=== PATIENT | male | born 1950 | race American Indian/Alaskan Native ===

== ENCOUNTER 2017-08-19 10:12 | Emergency (ER) | payer BC, OTHER ==
[2017-08-19] MEDS ORDERED: Aspirin 81 MG Tab.Chew PO ONE (10:23)
--- NOTE | 2017-08-19 10:25 | EDM.PDOC ---
ED HPI GENERAL MEDICAL PROBLEM - General Chief Complaint: Chest Pain Stated Complaint: PAIN ON LEFT SIDE,SOB Time Seen by Provider: 08/19/17 10:24 Source of Information: Reports: Patient - History of Present Illness INITIAL COMMENTS - FREE TEXT/NARRATIVE: HISTORY AND PHYSICAL: History of present illness: [Patient presents with a complaint of chest pain However just prior to arrival he was ice fishing and slipped on the ice, he fell on his left arm which compressed against his ribs he actually has lower rib pain on the left side, there is no bruising on his arm arm is nontender with full range of motion He denies head injury or loss of consciousness No fever nausea vomiting diarrhea constipation chest pain shortness breath headache dizziness or palpitation no bowel or urine symptoms ] Review of systems: As per history of present illness and below otherwise all systems reviewed and negative. Past medical history: As per history of present illness and as reviewed below otherwise noncontributory. Surgical history: As per history of present illness and as reviewed below otherwise noncontributory. Social history: No reported history of drug or alcohol abuse. Family history: As per history of present illness and as reviewed below otherwise noncontributory. Physical exam: HEENT: Atraumatic, normocephalic, pupils reactive, negative for conjunctival pallor or scleral icterus, mucous membranes moist, throat clear, neck supple, nontender, trachea midline. Lungs: Clear to auscultation, breath sounds equal bilaterally, chest tender along the left lower rib margins. Heart: S1S2, regular, negative for clicks, rubs, or JVD. Abdomen: Soft, nondistended, nontender. Negative for masses or hepatosplenomegaly. Negative for costovertebral tenderness. Pelvis: Stable nontender. Genitourinary: Deferred. Rectal: Deferred. Extremities: Atraumatic, negative for cords or calf pain. Neurovascular unremarkable. Neuro: Awake, alert, oriented. Cranial nerves II through XII unremarkable. Cerebellum unremarkable. Motor and sensory unremarkable throughout. Exam nonfocal. Diagnostics: [CBC CMP UA cardiac enzymes--canceled EKG--canceled Chest 1 view with left ribs ] Therapeutics: [Normal saline 1 25 mL per hour--canceled Aspirin 324 mg chewable--canceled ] [place] 5 per 325 one by mouth now one by mouth every 6 when necessary #30 no refill Impression: [Chest wall contusion Clinically correlates with at least a cracked rib Definitive disposition and diagnosis as appropriate pending reevaluation and review of above. left sided rib Pain Score (Numeric/FACES): 8 - Related Data Allergies Allergy/AdvReac Type Severity Reaction Status Date / Time penicillin Allergy Fever Verified 08/19/17 10:16 Home Meds: Home Meds Acetaminophen [Tylenol Arthritis Pain] 650 mg PO Q4HR 07/14/15 [History] Multivit-Min/FA/Lycopene/Lut [Centrum Silver Tablet] 1 tab PO DAILY 09/29/15 [ History] Omeprazole [Prilosec] 40 mg PO DAILY 09/29/15 [History] Past Medical History HEENT History: Reports: Impaired Vision, Other (See Below) Other HEENT History: wears glasses, hx of fx nose Cardiovascular History: Reports: None Respiratory History: Reports: None Other Respiratory History: pnuemonia 2015 Gastrointestinal History: Reports: GERD, Other (See Below) Other Gastrointestinal History: current rectal bleeding Genitourinary History: Reports: Other (See Below) Other Genitourinary History: kidney infection 3 months ago Musculoskeletal History: Reports: Arthritis, Fracture Other Musculoskeletal History: hx of arthritis to hands, fx right pinky finger, left shoulder surgery, ORIF left elbow Neurological History: Reports: None Psychiatric History: Reports: None Endocrine/Metabolic History: Reports: None Hematologic History: Reports: None Immunologic History: Reports: None Oncologic (Cancer) History: Reports: None Dermatologic History: Reports: None - Infectious Disease History Infectious Disease History: Reports: Measles - Past Surgical History Head Surgeries/Procedures: Reports: None GI Surgical History: Reports: Other (See Below) Musculoskeletal Surgical History: Reports: ORIF, Shoulder Surgery Social & Family History - Family History Family Medical History: Noncontributory Oncologic: Reports: Lung - Tobacco Use Smoking Status *Q: Never Smoker Used Tobacco, but Quit: Yes Second Hand Smoke Exposure: Yes - Caffeine Use Caffeine Use: Reports: None - Recreational Drug Use Recreational Drug Use: No Drug Use in Last 12 Months: No ED ROS GENERAL - Review of Systems Review Of Systems: ROS reveals no pertinent complaints other than HPI. ED EXAM, GENERAL - Physical Exam Exam: See Below Course - Vital Signs Last Recorded V/S: Last Vital Signs Temp 97.5 F 08/19/17 10:14 Pulse 73 08/19/17 10:14 Resp 20 08/19/17 10:14 BP 117/53 L 08/19/17 10:14 Pulse Ox 95 08/19/17 10:14 - Orders/Labs/Meds Orders: Active Orders 24 hr Category Date Time Status EKG Documentation Completion [RC] STAT Care 08/19/17 10:25 Inactive Ribs 2V w Chest Lt [CR] Stat Exams 08/19/17 10:25 Taken Meds: Medications Discontinued Medications Generic Name Dose Route Start Last Admin Trade Name Vee PRN Reason Stop Dose Admin Aspirin 324 mg 08/19/17 10:23 08/19/17 10:49 Aspirin PO 08/19/17 10:24 Not Given ONETIME ONE Sodium Chloride 1,000 mls @ 125 mls/hr 08/19/17 10:30 Normal Saline IV STAT KAITLYNN Departure - Departure Time of Disposition: 11:32 Disposition: Home, Self-Care 01 Condition: Good Clinical Impression: Contusion - Discharge Information Referrals: PCP,Unknown [Primary Care Provider] - Forms: ED Department Discharge Additional Instructions: Medication as prescribed Return if symptoms persist or worsen or sudden shortness of breath should this develop Follow-up with primary care in 2 weeks The following information is given to patients seen in the emergency department who are being discharged to home. This information is to outline your options for follow-up care. We provide all patients seen in our emergency department with a follow-up referral. The need for follow-up, as well as the timing and circumstances, are variable depending upon the specifics of your emergency department visit. If you don't have a primary care physician on staff, we will provide you with a referral. We always advise you to contact your personal physician following an emergency department visit to inform them of the circumstance of the visit and for follow-up with them and/or the need for any referrals to a consulting specialist. The emergency department will also refer you to a specialist when appropriate. This referral assures that you have the opportunity for follow-up care with a specialist. All of these measure are taken in an effort to provide you with optimal care, which includes your follow-up. Under all circumstances we always encourage you to contact your private physician who remains a resource for coordinating your care. When calling for follow-up care, please make the office aware that this follow-up is from your recent emergency room visit. If for any reason you are refused follow-up, please contact the [facility] emergency department at and asked to speak to the emergency department charge nurse. - My Orders Last 24 Hours: My Active Orders 08/19/17 10:25 EKG Documentation Completion [RC] STAT Ribs 2V w Chest Lt [CR] Stat - Assessment/Plan Last 24 Hours: My Active Orders 08/19/17 10:25 EKG Documentation Completion [RC] STAT Ribs 2V w Chest Lt [CR] Stat
[2017-08-19] MEDS ORDERED: Sodium Chloride 0.9% 1,000 ML IV SCH (10:30)
[2017-08-19] MEDS ORDERED: Acetaminophen/HYDROcodone 325-5 MG Tab PO ONE (11:33)
[2017-08-19 11:49] VITALS: BP 114/78
--- NOTE | 2017-08-21 17:17 | CR ---
EXAM DATE: 08/19/17 PATIENT'S AGE: 67 Patient: CHARLES STANLEY Facility: [place], [place] Site . Site : 1950 Study: XRay Chest ribs w/ribs [id number]/20/2018 11:14:08 AM Ordering Physician: Zenon Vázquez Final Report: INDICATION: Fall. Rib pain. Technique chest and rib detail. Five images of the chest in the left ribs. FINDINGS: Heart size is normal. No pleural effusions or pneumothorax. Mild scarring at the lung bases. No definite displaced fractures are visualized on the rib detail views. IMPRESSION: Basilar scarring. No pneumothorax or obvious displaced rib fracture. Dictated by Ryley Matson MD @ Aug 19 2017 11:21AM (Electronic Signature) Report Signed by Proxy. ABDOULAYE
== END 2017-08-19 11:47 | disposition home or self-care (01) ==
LOC: MW.ED 10:12
DX: S20.212A Contusion of left front wall of thorax, initial encounter (principal); Z88.0 Allergy status to penicillin; Z79.899 Other long term (current) drug therapy; W00.0XXA Fall on same level due to ice and snow, initial encounter; Y93.29 Activity, other involving ice and snow; Z87.891 Personal history of nicotine dependence
CPT/HCPCS: 71101; 99283; A9270

== ENCOUNTER 2017-08-21 20:29 | Emergency (ER) | payer MEDICARE, BC, OTHER ==
[2017-08-21] MEDS ORDERED: Ketorolac 60 MG/2 ML SDV IM ONE (21:11)
--- NOTE | 2017-08-21 21:11 | EDM.PDOC ---
<Mario Abad - Last Filed: 08/23/17 07:39> ED HPI GENERAL MEDICAL PROBLEM - General Chief Complaint: General Stated Complaint: PT HAS BODY PAIN Time Seen by Provider: 08/21/17 21:07 - History of Present Illness INITIAL COMMENTS - FREE TEXT/NARRATIVE: CT of patient's chest demonstrates displaced fractures of the seventh and eighth ribs and a nondisplaced fracture of the left ninth rib incidental finding of hiatal hernia is also noticed is no evidence of pneumothorax or pulmonary contusion CT abdomen and pelvis pending - Related Data Allergies Allergy/AdvReac Type Severity Reaction Status Date / Time penicillin Allergy Fever Verified 08/21/17 20:45 Home Meds: Home Meds Acetaminophen [Tylenol Arthritis Pain] 650 mg PO Q4HR 07/14/15 [History] Multivit-Min/FA/Lycopene/Lut [Centrum Silver Tablet] 1 tab PO DAILY 09/29/15 [ History] Omeprazole [Prilosec] 40 mg PO DAILY 09/29/15 [History] ED ROS GENERAL - Review of Systems Review Of Systems: ROS reveals no pertinent complaints other than HPI. ED EXAM, GENERAL - Physical Exam Exam: See Below (See dictation) Course - Vital Signs Last Recorded V/S: Last Vital Signs Temp 97.7 F 08/22/17 00:20 Pulse 68 08/22/17 00:20 Resp 17 08/22/17 00:20 BP 122/69 08/22/17 00:20 Pulse Ox 98 08/22/17 00:20 - Orders/Labs/Meds Labs: Laboratory Tests 08/21/17 08/21/17 Range/Units 22:21 22:21 WBC 12.81 H (4.0-11.0) K/uL RBC 4.91 (4.50-5.90) M/uL Hgb 14.0 (13.0-17.0) g/dL Hct 42.4 (38.0-50.0) % MCV 86.4 (80.0-98.0) fL MCH 28.5 (27.0-32.0) pg MCHC 33.0 (31.0-37.0) g/dL RDW Std Deviation 45.6 (28.0-62.0) fl RDW Coeff of Anton 15 (11.0-15.0) % Plt Count 212 (150-400) K/uL MPV 9.40 (7.40-12.00) fL Neut % (Auto) 84.1 H (48.0-80.0) % Lymph % (Auto) 8.8 L (16.0-40.0) % Bibb % (Auto) 6.4 (0.0-15.0) % Eos % (Auto) 0.5 (0.0-7.0) % Baso % (Auto) 0.2 (0.0-1.5) % Neut # (Auto) 10.8 H (1.4-5.7) K/uL Lymph # (Auto) 1.1 (0.6-2.4) K/uL Bibb # (Auto) 0.8 (0.0-0.8) K/uL Eos # (Auto) 0.1 (0.0-0.7) K/uL Baso # (Auto) 0.0 (0.0-0.1) K/uL Nucleated RBC % 0.0 /100WBC Nucleated RBCs # 0 K/uL Sodium 139 (136-146) mmol/L Potassium 4.1 (3.5-5.1) mmol/L Chloride 111 H (98-110) mmol/L Carbon Dioxide 19 L (21-31) mmol/L BUN 28 H (6.0-23.0) mg/dL Creatinine 1.2 (0.6-1.5) mg/dL Est Cr Clr Drug Dosing 59.38 mL/min Estimated GFR (MDRD) > 60.0 ml/min Glucose 112 H (60-110) mg/dL Calcium 8.7 L (8.8-10.8) mg/dL Total Bilirubin 0.3 (0.1-1.5) mg/dL AST 17 (5-40) IU/L ALT 19 (8-54) IU/L Alkaline Phosphatase 90 (40-150) Troponin I < 0.10 (0.0-0.29) NG/ML Total Protein 7.3 (6.0-8.0) g/dL Albumin 4.2 (3.4-4.8) g/dL Globulin 3.1 (2.0-3.5) g/dL Albumin/Globulin Ratio 1.4 (1.3-2.8) Meds: Medications Discontinued Medications Generic Name Dose Route Start Last Admin Trade Name Vee PRN Reason Stop Dose Admin Albuterol/Ipratropium 3 ml 08/21/17 21:38 08/21/17 21:59 Duoneb 3.0-0.5 Mg/3 Ml NEB 08/21/17 21:39 3 ml ONETIME ONE Administration Iopamidol 94 ml 08/21/17 23:25 08/21/17 23:26 Isovue Multipack-370 (76%) IVPUSH 08/21/17 23:26 94 ml ONETIME ONE Administration Ketorolac Tromethamine 60 mg 08/21/17 21:11 08/21/17 21:20 Toradol IM 08/21/17 21:12 60 mg ONETIME ONE Administration Departure - Departure Time of Disposition: 07:39 Disposition: Home, Self-Care 01 Condition: Good Clinical Impression: Rib fractures - Discharge Information Instructions: Rib Fracture Referrals: PCP,None [Primary Care Provider] - Forms: ED Department Discharge Care Plan Goals: followup with your primary doctor in 1-2 days, to return to emergency department for worsening condition <Ban Rider E - Last Filed: 08/24/17 21:52> ED HPI GENERAL MEDICAL PROBLEM - General Source of Information: Reports: Patient History Limitations: Reports: No Limitations - History of Present Illness INITIAL COMMENTS - FREE TEXT/NARRATIVE: HISTORY AND PHYSICAL: History of present illness: Patient is a 67-year-old male who presents to the emergency room with complaints of left sided rib pain after falling on 08/19/2017 while ice fishing ( slipped on ice falling onto his left side). Patient was evaluated in the emergency room at that time with a chest x-ray which was negative. He was prescribed [place] 5/325. Since that time he has been taking his medications as directed but now has not had any bowel movements since . Patient reports his pain has not improved and he is now concerned that he has a "broken rib from all the coughing of doing". He is requesting that he be admitted for pain management as he feels he is unable to care for himself at home. Denies any new falls since his previous assessments on 08/19/2017. Review of systems: As per history of present illness and below otherwise all systems reviewed and negative. Past medical history: As per history of present illness and as reviewed below otherwise noncontributory. Surgical history: As per history of present illness and as reviewed below otherwise noncontributory. Social history: No reported history of drug or alcohol abuse. Family history: As per history of present illness and as reviewed below otherwise noncontributory. Physical exam: Gen.: Well-developed and well-nourished 67-year-old male. Alert and oriented. Nontoxic appearing and in no acute distress. HEENT: Atraumatic, normocephalic, pupils reactive, negative for conjunctival pallor or scleral icterus, mucous membranes moist, throat clear, neck supple, nontender, trachea midline. Lungs: Fine crackles noted to the right posterior bases, breath sounds equal bilaterally, tenderness to the left lateral chest wall along the mid axillary line, no bruising or soft tissue swelling noted. Heart: S1S2, regular, negative for clicks, rubs, or JVD. Abdomen: Soft, nondistended, nontender. Negative for masses or hepatosplenomegaly. Negative for costovertebral tenderness. Pelvis: Stable nontender. Genitourinary: Deferred. Rectal: Deferred. Extremities: Atraumatic, negative for cords or calf pain. Neurovascular unremarkable. Neuro: Awake, alert, oriented. Cranial nerves II through XII unremarkable. Cerebellum unremarkable. Motor and sensory unremarkable throughout. Exam nonfocal. Patient states he recently took his [place] and does appear relatively comfortable. I did inform the patient that I am unable to give him an additional narcotic pain management as he is complaining of constipation and recently took his prescribed medication. Will give him Toradol IM. X-ray of the abdomen and chest will be done. Patient education was done on deep breathing, he does have some shallow respirations due to his pain - DuoNeb for his low oxygen saturation. Patient voices understanding. He is requesting that he be admitted for pain management. is at bedside and is concerned that he is not controlled with his current prescribed medication. Reviewing the x-rays appear inconclusive and CTs will be done with routine lab work for definitive diagnosis. Dr. Abad has assumed care of patient at this time. Patient is currently CBC and a DuoNeb treatment. Vital signs are stable. Patient is alert and oriented and appears comfortable. Diagnostics: Chest x-ray, acute abdominal series Therapeutics: Toradol, DuoNeb Impression: Rib Fracture Contusion Plan: followup with your primary doctor in 1-2 days, to return to emergency department for worsening condition Definitive disposition and diagnosis as appropriate pending reevaluation and review of above. left ribs Pain Score (Numeric/FACES): 10 Past Medical History HEENT History: Reports: Impaired Vision, Other (See Below) Other HEENT History: wears glasses, hx of fx nose Cardiovascular History: Reports: None Respiratory History: Reports: None Other Respiratory History: pnuemonia 2015 Gastrointestinal History: Reports: GERD, Other (See Below) Other Gastrointestinal History: current rectal bleeding Genitourinary History: Reports: Other (See Below) Other Genitourinary History: kidney infection 3 months ago Musculoskeletal History: Reports: Arthritis, Fracture Other Musculoskeletal History: hx of arthritis to hands, fx right pinky finger, left shoulder surgery, ORIF left elbow Neurological History: Reports: None Psychiatric History: Reports: None Endocrine/Metabolic History: Reports: None Hematologic History: Reports: None Immunologic History: Reports: None Oncologic (Cancer) History: Reports: None Dermatologic History: Reports: None - Infectious Disease History Infectious Disease History: Reports: Measles - Past Surgical History Head Surgeries/Procedures: Reports: None GI Surgical History: Reports: Other (See Below) Musculoskeletal Surgical History: Reports: ORIF, Shoulder Surgery Social & Family History - Family History Family Medical History: Noncontributory Oncologic: Reports: Lung - Tobacco Use Smoking Status *Q: Never Smoker Used Tobacco, but Quit: Yes Second Hand Smoke Exposure: Yes - Caffeine Use Caffeine Use: Reports: None - Recreational Drug Use Recreational Drug Use: Yes Drug Use in Last 12 Months: No Course - Orders/Labs/Meds Labs: Laboratory Tests 08/21/17 08/21/17 Range/Units 22:21 22:21 WBC 12.81 H (4.0-11.0) K/uL RBC 4.91 (4.50-5.90) M/uL Hgb 14.0 (13.0-17.0) g/dL Hct 42.4 (38.0-50.0) % MCV 86.4 (80.0-98.0) fL MCH 28.5 (27.0-32.0) pg MCHC 33.0 (31.0-37.0) g/dL RDW Std Deviation 45.6 (28.0-62.0) fl RDW Coeff of Anton 15 (11.0-15.0) % Plt Count 212 (150-400) K/uL MPV 9.40 (7.40-12.00) fL Neut % (Auto) 84.1 H (48.0-80.0) % Lymph % (Auto) 8.8 L (16.0-40.0) % Bibb % (Auto) 6.4 (0.0-15.0) % Eos % (Auto) 0.5 (0.0-7.0) % Baso % (Auto) 0.2 (0.0-1.5) % Neut # (Auto) 10.8 H (1.4-5.7) K/uL Lymph # (Auto) 1.1 (0.6-2.4) K/uL Bibb # (Auto) 0.8 (0.0-0.8) K/uL Eos # (Auto) 0.1 (0.0-0.7) K/uL Baso # (Auto) 0.0 (0.0-0.1) K/uL Nucleated RBC % 0.0 /100WBC Nucleated RBCs # 0 K/uL Sodium 139 (136-146) mmol/L Potassium 4.1 (3.5-5.1) mmol/L Chloride 111 H (98-110) mmol/L Carbon Dioxide 19 L (21-31) mmol/L BUN 28 H (6.0-23.0) mg/dL Creatinine 1.2 (0.6-1.5) mg/dL Est Cr Clr Drug Dosing 59.38 mL/min Estimated GFR (MDRD) > 60.0 ml/min Glucose 112 H (60-110) mg/dL Calcium 8.7 L (8.8-10.8) mg/dL Total Bilirubin 0.3 (0.1-1.5) mg/dL AST 17 (5-40) IU/L ALT 19 (8-54) IU/L Alkaline Phosphatase 90 (40-150) Troponin I < 0.10 (0.0-0.29) NG/ML Total Protein 7.3 (6.0-8.0) g/dL Albumin 4.2 (3.4-4.8) g/dL Globulin 3.1 (2.0-3.5) g/dL Albumin/Globulin Ratio 1.4 (1.3-2.8) Meds: Medications Discontinued Medications Generic Name Dose Route Start Last Admin Trade Name Freq PRN Reason Stop Dose Admin Albuterol/Ipratropium 3 ml 08/21/17 21:38 08/21/17 21:59 Duoneb 3.0-0.5 Mg/3 Ml NEB 08/21/17 21:39 3 ml ONETIME ONE Administration Iopamidol 94 ml 08/21/17 23:25 08/21/17 23:26 Isovue Multipack-370 (76%) IVPUSH 08/21/17 23:26 94 ml ONETIME ONE Administration Ketorolac Tromethamine 60 mg 08/21/17 21:11 08/21/17 21:20 Toradol IM 08/21/17 21:12 60 mg ONETIME ONE Administration
[2017-08-21] MEDS ORDERED: Albuterol/Ipratropium 3.0-0.5 MG/3 ML Neb Soln NEB ONE (21:38)
[2017-08-21 22:57] LABS: CHLORIDE,CL 111 mmol/L (98-110); SODIUM,NA 139 mmol/L (136-146)
[2017-08-21] MEDS ORDERED: Iopamidol 755 MG/ML 200 ML Multipack Bottle IVPUSH ONE (23:25)
[2017-08-22 00:26] VITALS: BP 122/69
--- NOTE | 2017-08-22 14:44 | CR ---
EXAM DATE: 08/21/17 PATIENT'S AGE: 67 Patient: CHARLES STANLEY Facility: [place], [place] Site . Site : 1950 Study: XRay Chest [id number]/22/2018 9:52:11 PM Ordering Physician: Doctor Jerome Final Report: HISTORY: Pain and shortness of breath. FINDINGS: AP and lateral chest radiographs are compared 19 August 2017 and 21 August 2016. There is new elevation of right hemidiaphragm with linear density the lung bases. The cardiac silhouette is normal. Pulmonary vasculature is free cephalization. No displaced rib fracture is identified. There is slight blunting of the posterior costophrenic angles. IMPRESSION: 1. New elevation of the right hemidiaphragm with bibasilar atelectasis. 2. Slight blunting of the posterior costophrenic angles suggesting trace bilateral pleural effusions. Dictated by Renetta Morataya MD @ 08/21/2017 10:01:06 PM Dictated by: Renetta Morataya MD @ 08/21/2017 22:04:15 (Electronic Signature) Report Signed by Proxy. ABDOULAYE
--- NOTE | 2017-08-22 14:45 | CR ---
EXAM DATE: 08/21/17 PATIENT'S AGE: 67 Patient: CHARLES STANLEY Facility: [place], [place] Site . Site : 1950 Study: XRay Abdomen [id number]/22/2018 9:58:01 PM Ordering Physician: Doctor Jerome Final Report: HISTORY: Abdomen pain. Patient states constipation from narcotics. FINDINGS: Two supine and two upright radiograph the abdomen demonstrates mild elevation of right hemidiaphragm with linear density seen in the lung bases. There is no free air under the diaphragm. There is copious stool seen in the transverse colon with gaseous distention of the splenic flexure. Bilateral pelvic phleboliths are present. No dilated small bowel is seen. There are degenerative changes description lumbar spine. There fractures of the lateral left 8th and 9th ribs. IMPRESSION: 1. Elevation of right hemidiaphragm with bibasilar atelectasis. 2. Copious stool seen in the ascending and transverse colon with gaseous distention of the transverse colon. 3. No free air. 4. Fractures of the left lateral 8th and 9th ribs. Dictated by Renetta Morataya MD @ 08/21/2017 10:03:52 PM Dictated by: Renetta Morataya MD @ 08/21/2017 22:04:06 (Electronic Signature) Report Signed by Proxy. ABDOULAYE
--- NOTE | 2017-08-22 14:46 | CT ---
EXAM DATE: 08/21/17 PATIENT'S AGE: 67 Patient: CHARLES STANLEY Facility: [place], [place] Site . Site : 1950 Study: CT Chest W CONT [id number]/22/2018 11:24:38 PM Ordering Physician: Doctor Jerome Final Report: INDICATION: Left-sided rib pain following fall on Monday TECHNIQUE: CT chest was acquired with IV contrast. 94 cc Isovue 370 COMPARISON: None FINDINGS: Cardiovascular structures: Heart size is normal. Thoracic aorta and main pulmonary artery are normal in caliber. Mediastinum and sahra: No mass or adenopathy. Hiatal hernia. Lungs: Bibasilar atelectasis. Pleura and pericardium: No effusions. Chest wall and axilla: No mass or adenopathy. Bones: Displaced fractures left 7th and 8th ribs. Nondisplaced fracture left 9th rib. Upper abdomen: Unremarkable. IMPRESSION: Displaced fractures left 7th and 8th ribs. Nondisplaced fracture left 9th rib. No pneumothorax. Hiatal hernia. Dictated by Uriel Bingham MD @ 08/21/2017 11:44:08 PM Dictated by: Uriel Bingham MD @ 08/21/2017 23:44:16 (Electronic Signature) Report Signed by Proxy. ABDOULAYE
--- NOTE | 2017-08-22 14:47 | CT ---
EXAM DATE: 08/21/17 PATIENT'S AGE: 67 Patient: CHARLES STANLEY Facility: [place], [place] Site . Site : 1950 Study: CT Abdomen/Pelvis W CONT [id number]/22/2018 11:30:11 PM Ordering Physician: Doctor Jerome Final Report: INDICATION: Left-sided pain following fall on Monday TECHNIQUE: CT abdomen and pelvis acquired with IV contrast. COMPARISON: None FINDINGS: Lower chest: Bibasilar atelectasis. Hiatal hernia. Trace left pleural effusion. Liver: Unremarkable. Spleen: Unremarkable. Pancreas: Unremarkable. Gallbladder and bile ducts: Unremarkable. Kidneys: Left intrarenal collecting system prominence versus parapelvic cyst. . Adrenal glands: Unremarkable. GI tract: Unremarkable. Appendix is normal. Vascular structures: Unremarkable. Lymph nodes: Fat stranding involving the proximal small bowel mesentery with multiple subcentimeter lymph nodes. Findings may represent nonspecific mesenteritis. Aortocaval adenopathy. Miscellaneous: No free air or significant free fluid. Pelvic Organs: Prostatomegaly. Bones: Fractures left 7th, 8th and 9th ribs. IMPRESSION: Fractures left 7th, 8th and 9th ribs. No evidence of acute trauma involving the abdomen or pelvis. Patchy involvement possible small myomas injure with multiple subcentimeter lymph nodes. Findings may represent nonspecific mesenteritis. Bibasilar atelectasis. Trace left pleural effusion. Hilar hernia. Prostatomegaly. Dictated by Uriel Bingham MD @ 08/21/2017 11:54:11 PM Dictated by: Uriel Bingham MD @ 08/21/2017 23:54:50 (Electronic Signature) Report Signed by Proxy. [facility] SYSTEMBill
== END 2017-08-22 00:25 | disposition home or self-care (01) ==
LOC: MW.ED 20:29
DX: S22.42XA Multiple fractures of ribs, left side, initial encounter for closed fracture (principal); W00.0XXA Fall on same level due to ice and snow, initial encounter; Y93.89 Activity, other specified; Z88.0 Allergy status to penicillin; K21.9 Gastro-esophageal reflux disease without esophagitis
CPT/HCPCS: 36415; 71046; 71260; 74019; 74177; 80053; 84484; 85025; 93005; 94640; 96372; 99284; J1885; Q9967

== ENCOUNTER 2020-04-17 19:23 | Emergency (ER) | payer MEDICARE, OTHER ==
--- NOTE | 2020-04-17 19:32 | EDM.PDOC ---
ED HPI GENERAL MEDICAL PROBLEM - General Chief Complaint: Gastrointestinal Problem Stated Complaint: POSSIBLE ACID REFLUX Time Seen by Provider: 04/17/20 19:27 Source of Information: Reports: Patient History Limitations: Reports: No Limitations - History of Present Illness INITIAL COMMENTS - FREE TEXT/NARRATIVE: HISTORY AND PHYSICAL: History of present illness: Patient is a 70-year-old male who presents to the ED today with concern of vomiting since yesterday. Patient states he has not been able to eat or drink anything without vomiting. Patient states he has had over 15 episodes of vomiting since last night. Patient states that he has not been able to even keep down water without vomiting. Patient states he is concerned that it could be related to acid reflux, as he was once told that he had acid reflux. Patient states he tried taking some Tums but ended up vomiting shortly after. Patient denies any health history or any other symptoms or concerns. Patient denies fever, chills, chest pain, shortness of breath, or cough. Denies headache, neck stiff ness, change in vision, syncope, or near syncope. Denies abdominal pain, diarrhea, constipation, or dysuria. Has not noted any blood in urine or stool. Patient has been eating and drinking appropriately. Review of systems: As per history of present illness and below otherwise all systems reviewed and negative. Past medical history: As per history of present illness and as reviewed below otherwise noncontributory. Surgical history: As per history of present illness and as reviewed below otherwise n oncontributory. Social history: See social history for further information Family history: As per history of present illness and as reviewed below otherwise noncontributory. Physical exam: General: Patient is alert, oriented, and in no acute distress. Patient laying comfortably on exam table. HEENT: Atraumatic, normocephalic, pupils equal and reactive bilaterally, negative for conjunctival pallor or scleral icterus, mucous membranes moist, TMs normal bilaterally, throat clear, neck supple, nontender, trachea midline. No drooling or trismus noted. No meningeal signs. No hot potato voice noted. Lungs: Clear to auscultation, breath sounds equal bilaterally, chest nontender. Heart: S1S2, regular rate and rhythm without overt murmur Abdomen: Soft, nondistended, nontender. Negative for masses or hepatosplenomegaly. Negative for costovertebral tenderness. Pelvis: Stable nontender. Genitourinary: Deferred. Rectal: Deferred. Skin: Intact, warm, dry. No lesions or rashes noted. Extremities: Atraumatic, negative for cords or calf pain. Neurovascular unremarkable. Neuro: Awake, alert, oriented. Cranial nerves II through XII unremarkable. Cerebellum unremarkable. Motor and sensory unremarkable throughout. Exam nonfocal. Notes: I did call and speak to Dr. Garcia, radiologist and discussed the incidental finding on the CT scan. Dr. Garcia states that this is more of an incidental finding and he is not concerned for infectious or early/atypical infarct and that he feels the "hazzy" appearance is typical and just makes note of it incendiary. Upon reevaluation of patient, he describes food getting stuck in his esophagus and then vomiting rather than nausea and vomiting, denies chest pain or abdominal pain. I do suspect that patient may have had a esophageal food bolus that has now resolved. This has resolved in the ED today as patient is able to eat and drink without vomiting in the emergency room today and has had no episodes of vomiting in the emergency room. Patient states he does have a prescription for Nexium but has not been taking this but states that he has it at home available to him and agrees to start taking this medication. Discussed importance for follow-up with the general surgeon and to reestablish care with his primary care provider. Signs and symptoms that would prompt return to the ED thoroughly discussed with patient. Voices understanding and is agreeable to plan of care. Denies any further questions or concerns at this time. Diagnostics: CBC, CMP, UA, EKG, CXR, Trop, Lipase, Abd/pelvic w cont Therapeutics: NS, Zofran Prescription: Zofran Impression: Vomiting, resolved, suspect esophageal food bolus Plan: 1. Take Nexium as directed and as discussed. Take medication as prescribed. 2. Establish care with a primary care provider as discussed. Follow up with the general surgeon as discussed. 3. Return to the ED as needed and as discussed. Definitive disposition and diagnosis as appropriate pending reevaluation and review of above. - Related Data Allergies Allergy/AdvReac Type Severity Reaction Status Date / Time penicillin Allergy Fever Verified 04/17/20 19:48 Home Meds: Home Meds Esomeprazole Magnesium [Nexium] 20 mg PO DAILY 04/17/20 [History] Ondansetron [Zofran ODT] 4 mg PO Q6H PRN #8 tab.dis 04/17/20 [Rx] Past Medical History HEENT History: Reports: Impaired Vision, Other (See Below) Other HEENT History: wears glasses, hx of fx nose Cardiovascular History: Reports: None Respiratory History: Reports: None Other Respiratory History: pnuemonia 2016 Gastrointestinal History: Reports: GERD, Other (See Below) Other Gastrointestinal History: current rectal bleeding Genitourinary History: Reports: Other (See Below) Other Genitourinary History: kidney infection 3 months ago Musculoskeletal History: Reports: Arthritis, Fracture Other Musculoskeletal History: hx of arthritis to hands, fx right pinky finger, left shoulder surgery, ORIF left elbow Neurological History: Reports: None Psychiatric History: Reports: None Endocrine/Metabolic History: Reports: None Hematologic History: Reports: None Immunologic History: Reports: None Oncologic (Cancer) History: Reports: None Dermatologic History: Reports: None - Infectious Disease History Infectious Disease History: Reports: Measles - Past Surgical History Head Surgeries/Procedures: Reports: None GI Surgical History: Reports: Other (See Below) Musculoskeletal Surgical History: Reports: ORIF, Shoulder Surgery Social & Family History - Family History Family Medical History: Noncontributory Oncologic: Reports: Lung - Caffeine Use Caffeine Use: Reports: None ED ROS GENERAL - Review of Systems Review Of Systems: Comprehensive ROS is negative, except as noted in HPI. ED EXAM, GENERAL - Physical Exam Exam: See Below (see dictation) Course - Vital Signs Last Recorded V/S: Last Vital Signs Temp 96.7 F L 04/17/20 19:45 Pulse 70 04/17/20 19:45 Resp 18 04/17/20 19:45 BP 126/63 04/17/20 19:45 Pulse Ox 96 04/17/20 19:45 - Orders/Labs/Meds Orders: Active Orders 24 hr Category Date Time Status Communication Order [RC] STAT Care 04/17/20 21:19 Active EKG Documentation Completion [RC] STAT Care 04/17/20 19:48 Active UA RFX KAREN AND CULT IF INDIC [URIN] Stat Lab 04/17/20 19:47 Ordered Labs: Laboratory Tests 04/17/20 04/17/20 Range/Units 19:43 19:43 WBC 6.94 (4.0-11.0) K/uL RBC 4.80 (4.50-5.90) M/uL Hgb 13.4 (13.0-17.0) g/dL Hct 40.8 (38.0-50.0) % MCV 85.0 (80.0-98.0) fL MCH 27.9 (27.0-32.0) pg MCHC 32.8 (31.0-37.0) g/dL RDW Std Deviation 44.9 (28.0-62.0) fl RDW Coeff of Anton 15 (11.0-15.0) % Plt Count 264 (150-400) K/uL MPV 9.40 (7.40-12.00) fL Neut % (Auto) 59.3 (48.0-80.0) % Lymph % (Auto) 29.4 (16.0-40.0) % Whiteside % (Auto) 8.6 (0.0-15.0) % Eos % (Auto) 2.3 (0.0-7.0) % Baso % (Auto) 0.4 (0.0-1.5) % Neut # (Auto) 4.1 (1.4-5.7) K/uL Lymph # (Auto) 2.0 (0.6-2.4) K/uL Whiteside # (Auto) 0.6 (0.0-0.8) K/uL Eos # (Auto) 0.2 (0.0-0.7) K/uL Baso # (Auto) 0.0 (0.0-0.1) K/uL Nucleated RBC % 0.0 /100WBC Nucleated RBCs # 0 K/uL Sodium 143 (136-148) mmol/L Potassium 3.4 L (3.5-5.1) mmol/L Chloride 108 H (98-107) mmol/L Carbon Dioxide 24.5 (21.0-32.0) mmol/L BUN 22 H (7.0-18.0) mg/dL Creatinine 1.0 (0.8-1.3) mg/dL Est Cr Clr Drug Dosing 65.00 mL/min Estimated GFR (MDRD) > 60.0 ml/min Glucose 90 (74-106) mg/dL Calcium 8.8 (8.5-10.1) mg/dL Total Bilirubin 0.6 (0.2-1.0) mg/dL AST 19 (15-37) IU/L ALT 30 (14-63) IU/L Alkaline Phosphatase 124 H (46-116) U/L Troponin I < 0.050 (0.000-0.056) ng/mL Total Protein 7.8 (6.4-8.2) g/dL Albumin 4.3 (3.4-5.0) g/dL Globulin 3.5 (2.6-4.0) g/dL Albumin/Globulin Ratio 1.2 (0.9-1.6) Lipase 66 L (73-393) U/L Meds: Medications Discontinued Medications Generic Name Dose Route Start Last Admin Trade Name Freq PRN Reason Stop Dose Admin Sodium Chloride 1,000 mls @ 999 mls/hr 04/17/20 19:47 04/17/20 19:59 Normal Saline IV 04/17/20 20:47 999 mls/hr BOLUS ONE Administration Pantoprazole Sodium 80 mg/ 20 mls @ 420 mls/hr 04/17/20 19:48 04/17/20 19:59 Sodium Chloride IVPUSH 04/17/20 19:50 420 mls/hr ONETIME ONE Administration Iopamidol 100 ml 04/17/20 20:54 04/17/20 20:54 Isovue-370 (76%) IVPUSH 04/17/20 20:55 100 ml ONETIME ONE Administration Ondansetron HCl 4 mg 04/17/20 19:47 04/17/20 20:00 Zofran IVPUSH 04/17/20 19:48 4 mg ONETIME ONE Administration Departure - Departure Time of Disposition: 22:02 Disposition: Home, Self-Care 01 Clinical Impression: Vomiting Qualifiers: Vomiting type: unspecified Vomiting Intractability: non-intractable Nausea presence: without nausea Qualified Code(s): R11.11 - Vomiting without nausea - Discharge Information Referrals: PCP,None [Primary Care Provider] - Forms: ED Department Discharge Additional Instructions: The following information is given to patients seen in the emergency department who are being discharged to home. This information is to outline your options for follow-up care. We provide all patients seen in our emergency department with a follow-up referral. The need for follow-up, as well as the timing and circumstances, are variable depending upon the specifics of your emergency department visit. If you don't have a primary care physician on staff, we will provide you with a referral. We always advise you to contact your personal physician following an emergency department visit to inform them of the circumstance of the visit and for follow-up with them and/or the need for any referrals to a consulting specialist. The emergency department will also refer you to a specialist when appropriate. This referral assures that you have the opportunity for follow-up care with a specialist. All of these measure are taken in an effort to provide you with optimal care, which includes your follow-up. Under all circumstances we always encourage you to contact your private physician who remains a resource for coordinating your care. When calling for follow-up care, please make the office aware that this follow-up is from your recent emergency room visit. If for any reason you are refused follow-up, please contact the [facility] Emergency Department at and asked to speak to the emergency department charge nurse. [facility] [address] [place] [address] [address] [facility] [address] [place] [address], [address] [place] [address] 1. Take OTC Nexium as directed and as discussed. Take medication as prescribed. 2. Establish care with a primary care provider as discussed. Follow up with the general surgeon as discussed. 3. Return to the ED as needed and as discussed. Sepsis Event Note (ED) - Focused Exam Vital Signs: Vital Signs Temp Pulse Resp BP Pulse Ox 04/17/20 19:45 96.7 F L 70 18 126/63 96 - My Orders Last 24 Hours: My Active Orders 04/17/20 19:47 UA RFX KAREN AND CULT IF INDIC [URIN] Stat 04/17/20 19:48 EKG Documentation Completion [RC] STAT 04/17/20 21:19 Communication Order [RC] STAT - Assessment/Plan Last 24 Hours: My Active Orders 04/17/20 19:47 UA RFX KAREN AND CULT IF INDIC [URIN] Stat 04/17/20 19:48 EKG Documentation Completion [RC] STAT 04/17/20 21:19 Communication Order [RC] STAT
[2020-04-17] MEDS ORDERED: Ondansetron 4 MG/2 ML SDV IVPUSH ONE (19:47)
[2020-04-17] MEDS ORDERED: Sodium Chloride 0.9% 1,000 ML IV ONE (19:47)
[2020-04-17] MEDS ORDERED: Pantoprazole 80 MG in Sodium Chloride 0.9% 20 ML IVPUSH ONE (19:48)
[2020-04-17 20:09] LABS: BLOOD UREA NITROGEN,BUN 22 mg/dL (7.0-18.0); CARBON DIOXIDE,CO2 24.5 mmol/L (21.0-32.0); CHLORIDE,CL 108 mmol/L (98-107); GLUCOSE RANDOM 90 mg/dL (74-106); LIPASE 66 U/L (73-393); POTASSIUM,K 3.4 mmol/L (3.5-5.1); SODIUM,NA 143 mmol/L (136-148)
--- NOTE | 2020-04-17 20:40 | CR ---
Chest: Portable view of the chest was obtained. Comparison: No prior chest imaging is available. Heart size and mediastinum are normal. Minimal linear densities are noted within the lateral left costophrenic angle. This is most likely due to minimal scarring or atelectasis. No acute parenchymal change is seen. Bony structures are grossly intact. Impression: 1. Nothing acute is appreciated on portable chest x-ray. Diagnostic code #2 This report was dictated in MDT
[2020-04-17] MEDS ORDERED: Iopamidol 755 Mg/ML 100 ML Bottle IVPUSH ONE (20:54)
--- NOTE | 2020-04-17 21:12 | CT ---
CT abdomen and pelvis Technique: Multiple axial sections were obtained from above the dome of the diaphragm inferiorly through the pubic symphysis. Intravenous contrast was utilized. No oral contrast has been given. Findings: Visualized lung bases show nothing acute. Noncontrast appearance of the liver and spleen shows no focal abnormality. Small hiatal hernia is noted. Adrenal glands show no nodule. Pancreas is within normal limits. Kidneys show symmetric contrast enhancement. Several small cortical cysts are seen within the right kidney. No ureteral dilatation or ureteral stone is seen. Slight haziness within the mid mesentery is seen most likely incidental. Aorta shows no aneurysm. Mild atherosclerotic change is seen within the aorta. Small retroperitoneal lymph nodes are seen believed to be within normal limits. Appendix is seen and believed to be within normal limits. No free fluid is seen. Prostate calcifications are noted compatible with previous prostatitis. Bone window settings were reviewed. No acute osseous finding is appreciated. Mild scattered degenerative change is seen within the spine. Impression: 1. Findings believed to be incidental as noted above. 2. Nothing acute is appreciated on CT study of the abdomen and pelvis. Diagnostic code #2 This report was dictated in MDT
[2020-04-18 00:44] VITALS: BP 129/75; PULSE 58
== END 2020-04-17 22:20 | disposition home or self-care (01) ==
LOC: MW.ED 19:23
DX: R11.10 Vomiting, unspecified (principal); K21.9 Gastro-esophageal reflux disease without esophagitis; Z88.0 Allergy status to penicillin; Z79.899 Other long term (current) drug therapy
CPT/HCPCS: 36415; 71045; 74177; 80053; 83690; 84484; 85025; 93005; 96361; 96374; 96375; 99284; C9113; J2405; J7030; Q9967; 99283

== ENCOUNTER 2020-06-23 09:43 | Day surgery (SDC) | payer OTHER, MEDICARE ==
[~2020-06-23 09:43] MED LIST: Lactated Ringers 1,000 ML IV SCH; Lidocaine 2% 5 ML SDV ONE; Midazolam 1 MG/ML 2 ML SDV ONE; Propofol 200 MG/20 ML SDV ONE; Sodium Chloride 0.9% 10 ML SDV IV PRN; Sodium Chloride 0.9% 10 ML Syringe FLUSH PRN; Sodium Chloride 0.9% 2.5 ML Syringe FLUSH PRN; ePHEDrine 50 MG/ML SDV ONE; fentaNYL 100 MCG/2 ML SDV ONE
[2020-06-23] MEDS ORDERED: Rocuronium Bromide 50 MG/5 ML Syringe ONE (10:03)
[2020-06-23] MEDS ORDERED: Dexamethasone 4 MG/ML 5 ML MDV ONE (10:04)
[2020-06-23] MEDS ORDERED: Glycopyrrolate 0.2 MG/ML SDV ONE ×3 (10:08→11:15)
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
--- NOTE | 2020-06-23 12:06 | PCM.OPNOTE ---
- General Post-Op/Procedure Note Date of Surgery/Procedure: 06/23/20 Operative Procedure(s): Diagnostic EGD and colonoscopy Findings: Gastritis, hiatal hernia, ascending colon polyp, sigmoid colon polyp Pre Op Diagnosis: Hiatal hernia, dysphagia, history of colon polyps Post-Op Diagnosis: Hiatal hernia, gastritis, ascending colon polyp, sigmoid colon polyp Anesthesia Technique: [facility] Primary Surgeon: Heydi Desouza Condition: Good
--- NOTE | 2020-06-23 13:11 | PCM48HPAN ---
Post Anesthesia Note - EVALUATION WITHIN 48HRS OF ANESTHETIC Vital Signs in Normal Range: Yes Patient Participated in Evaluation: Yes Respiratory Function Stable: Yes Airway Patent: Yes Cardiovascular Function Stable: Yes Hydration Status Stable: Yes Pain Control Satisfactory: Yes Nausea and Vomiting Control Satisfactory: Yes Mental Status Recovered: Yes Vital Signs: Last Vital Signs Temp 96.8 F L 06/23/20 10:00 Pulse 71 06/23/20 12:15 Resp 16 06/23/20 12:15 BP 98/62 06/23/20 12:15 Pulse Ox 93 L 06/23/20 12:15
--- NOTE | 2020-06-23 13:11 | PCM.POSTAN ---
POST ANESTHESIA ASSESSMENT - MENTAL STATUS Mental Status: Alert, Oriented - VITAL SIGNS Vital Signs: Last Vital Signs Temp 96.8 F L 06/23/20 10:00 Pulse 71 06/23/20 12:15 Resp 16 06/23/20 12:15 BP 98/62 06/23/20 12:15 Pulse Ox 93 L 06/23/20 12:15 - RESPIRATORY Respiratory Status: Respiratory Rate WNL, Airway Patent, O2 Saturation Stable - CARDIOVASCULAR CV Status: Pulse Rate WNL, Blood Pressure Stable - GASTROINTESTINAL GI Status: No Symptoms - POST OP HYDRATION Hydration Status: Adequate & Stable
--- NOTE | 2020-06-23 13:17 | OR ---
SURGEON: HEYDI DESOUZA MD DATE OF PROCEDURE: 06/23/2020 PREOPERATIVE DIAGNOSES: 1. Dysphagia. 2. Hiatal hernia. 3. History of colon polyps. POSTOPERATIVE DIAGNOSES: 1. Hiatal hernia. 2. Gastritis. 3. Ascending colon polyp. 4. Sigmoid colon polyp. PROCEDURES PERFORMED: Diagnostic esophagogastroduodenoscopy and colonoscopy. PRIMARY SURGEON: Heydi Desouza MD. ANESTHESIA: MAC. INSTRUMENT USED: Olympus colonoscope. EXTENT OF EXAMINATION: To the second portion of duodenum, to the cecum. PREPARATION: Good. LIMITATIONS: None. INDICATIONS FOR EXAMINATION: The patient is a 70-year-old male who presented to my clinic with dysphagia. A recent CT scan showed evidence of a hiatal hernia. The patient takes Nexium with good relief in his symptoms, but he admits that he does not take it every day. He has a history of colon polyps and is overdue for a repeat colonoscopy. I explained the need for diagnostic esophagogastroduodenoscopy and colonoscopy. I explained the procedure, expected perioperative course, and risks. The patient verbalized understanding and wishes to proceed. PROCEDURE IN DETAIL: The patient was brought into the endoscopy suite and placed in the left lateral decubitus position in the OR cart. A time-out was completed verifying the patient's name, age, date of , allergies, and procedure to be performed. Monitored anesthesia care was induced and continuous oxygen was provided via nasal cannula throughout the procedure. After adequate sedation was achieved, a well-lubricated endoscope was placed through the patient's bite block in his mouth into the posterior pharynx and advanced under direct visualization to the second portion of the duodenum. This appeared normal and a photograph was taken. The scope was then fully withdrawn while examining the color, texture, anatomy, and integrity of the mucosa of the upper GI tract. The duodenal mucosa appeared normal. The scope was brought into the stomach and a photograph taken of the pylorus and GE junction. There was evidence of gastritis within the antrum. A photograph of this was taken. At the GE junction, the patient was noted to have a hiatal hernia. A photograph of this was taken. Biopsies were taken of the gastric antrum, body, and fundus and sent for histologic review and H pylori testing. The scope was brought into the distal esophagus. The distal half of the esophagus was somewhat tortuous and this was likely due to the hiatal hernia. I saw no evidence of stricturing or esophagitis. A photograph was taken of the Z-line which appeared normal. A biopsy was taken 1 cm above this and sent to pathology, labeled as esophagus. The scope was removed and this portion of the procedure was terminated. A digital rectal exam was performed. This exam was within normal limits. A well-lubricated colonoscope was inserted into the rectum and advanced under direct visualization to the level of the cecum. Cecum was identified by both visual and anatomic landmarks. A photograph was taken of the cecal cap as well as with the scope retroflexed within the cecum. The scope was then fully withdrawn while examining the color, texture, anatomy, and integrity of the mucosa from the cecum to the anal canal. The patient was found to have a proximal ascending colon polyp which was flat and sessile. It was removed in piecemeal fashion using a cold biopsy forceps. The patient was found to have a small sessile polyp within the proximal sigmoid colon. This was removed using a cold biopsy forceps. The remainder of the colonic and rectal mucosa appeared normal. The scope was retroflexed within the rectum to allow visualization of the anal canal opening. This appeared normal and a photograph was taken. The scope was straightened out and fully withdrawn. The cecum to anus time was greater than 10 minutes. The patient tolerated the procedure well and was transferred to the PACU in stable condition. ENDOSCOPIC DIAGNOSES: 1. Hiatal hernia. 2. Gastritis. 3. Ascending colon polyp. 4. Sigmoid colon polyp. RECOMMENDATIONS: We will visit with the patient in clinic in 2 weeks. In the postoperative care area, I told the patient that he should start taking his Nexium every day and we will visit about this more when he comes back to see me in clinic. DANIEL / KUN /[id number]
[2020-06-23 17:00] VITALS: BP 127/75; PULSE 82
== END 2020-06-23 13:30 | disposition home or self-care (01) ==
LOC: MW.SDS 09:43
PROVIDERS: ATTEND Surgery
DX: Z12.11 Encounter for screening for malignant neoplasm of colon (principal); D12.5 Benign neoplasm of sigmoid colon; D12.2 Benign neoplasm of ascending colon; K44.9 Diaphragmatic hernia without obstruction or gangrene; K29.50 Unspecified chronic gastritis without bleeding; A04.8 Other specified bacterial intestinal infections; K21.9 Gastro-esophageal reflux disease without esophagitis; Z79.899 Other long term (current) drug therapy; Z98.890 Other specified postprocedural states; Z87.891 Personal history of nicotine dependence; Z88.0 Allergy status to penicillin
CPT/HCPCS: 43239; 45380; J2001; J2250; J2704; J3010; J3490; J7120; 00813; 88305; 88312; J1100

== ENCOUNTER 2020-09-03 21:57 | Day surgery (SDC) | payer MEDICARE, OTHER ==
[2020-09-03] MEDS ORDERED: Sodium Chloride 0.9% 1,000 ML IV ONE (22:20)
[2020-09-03] MEDS ORDERED: Alum Hydrox/Mag Hydrox/Simeth 15 ML, Lidocaine 2% 5 ML PO ONE ×2 (22:24)
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
[2020-09-03 22:53] LABS: BLOOD UREA NITROGEN,BUN 27 mg/dL (7.0-18.0); CARBON DIOXIDE,CO2 25.5 mmol/L (21.0-32.0); CHLORIDE,CL 103 mmol/L (98-107); GLUCOSE RANDOM 99 mg/dL (74-106); POTASSIUM,K 4.6 mmol/L (3.5-5.1); SODIUM,NA 142 mmol/L (136-148)
--- NOTE | 2020-09-03 22:56 | CR ---
Indication: Midchest pain Technique: Chest 2 views Comparison: 04/17/2020 Findings/Impression: Cardiovascular and mediastinum: Heart size and vasculature are normal in caliber and appearance. Mediastinum is within normal limits. Lungs and pleural spaces: Lungs are clear. No sign of infiltrate or mass. No sign of pleural effusion. No pneumothorax. Bones and soft tissues: Few mild chronic rib deformities. Dictated by Meño Vivar MD @ Sep 03 2020 10:54PM Signed by Dr. Meño Vivar @ Sep 03 2020 10:56PM
--- NOTE | 2020-09-04 00:37 | CT ---
INDICATION: Possible food impaction. COMPARISON: None available TECHNIQUE: CT examination of the neck is performed using spiral technique without contrast administration. 3 mm thick axial sections were made along with coronal and sagittal sections. Please note that all CT scans at this facility use dose modulation, iterative reconstruction, and/or weight-based dosing when appropriate to reduce radiation dose to as low as reasonably achievable. FINDINGS: The airway structures are normal in appearance. There is no sign food material collected in the pharynx, hypopharynx, or the cervical esophagus. There is mild gaseous distension of the superior and mid thoracic esophagus, extending to food located in the subcarinal thoracic esophagus. This appearance is nonspecific. There is no sign of wall thickening to suggest a mass or reflux esophagitis involving the superior half of the thoracic esophagus. There is no sign of cervical mass or adenopathy on today`s study. The salivary glands are normal in appearance. The visualized posterior fossa, mastoids, skull base, and orbits are normal in appearance. There is mild mucosal thickening in the ethmoids bilaterally from mild chronic sinusitis. The rest of the paranasal sinuses are clear. The great vessels are unremarkable. The thyroid gland is normal in appearance. The visualized upper chest is clear. Heavily calcified granulomata are seen in the subcarinal region. The visualized upper mediastinum is otherwise normal in appearance. There is minimal posterior subluxation of C4 on C5 and of C5 on C6 associated with prominent C4-5 and C5-6 disc degenerative disease. There is moderate bilateral C5-6 and left C4-5 foraminal stenosis from uncovertebral joint hypertrophy. There is minimal anterior subluxation of C7 on T1 which is probably degenerative, associated with mild right facet arthropathy. There is mild C7-T1 disc degenerative disease. There is mild C6-7 disc degenerative disease. There is mild bilateral foraminal stenosis at this level from uncovertebral joint hypertrophy. IMPRESSION: No sign of food impaction in the cervical esophagus or the superior half of the thoracic esophagus. Degenerative changes in the cervical spine as described above. Please note that all CT scans at this facility use dose modulation, iterative reconstruction, and/or weight-based dosing when appropriate to reduce radiation dose to as low as reasonably achievable. Dictated by Vishnu Fletcher MD @ Sep 04 2020 12:30AM Signed by Dr. Vishnu Fletcher @ Sep 04 2020 12:36AM
--- NOTE | 2020-09-04 00:46 | CT ---
INDICATION: Possible food impaction. COMPARISON: Noncontrast CT of the soft tissue of the neck from today. Chest radiograph from earlier this evening. TECHNIQUE: CT examination of the chest was performed without contrast enhancement. 3 mm thick axial sections were obtained from above the apices of the lungs to the lung bases. Please note that all CT scans at this facility use dose modulation, iterative reconstruction, and/or weight-based dosing when appropriate to reduce radiation dose to as low as reasonably achievable. FINDINGS: The lungs are clear with no sign of significant infiltrate or mass. There is a 2.5 centimeter long column of food in the inferior thoracic esophagus located superior to a moderate-sized hiatal hernia. The esophagus superior to this is not distended. It is possible that there is mild impaction of food in the distal thoracic esophagus from a stricture of the GE junction. There is no sign of mediastinal or hilar mass or adenopathy. Sensitivity is limited by lack of contrast enhancement. There is heavy calcification of subcarinal granulomata, more prominent on the right. There is moderate LAD coronary calcification. There is mild LCX and RCA coronary calcification. The heart is otherwise normal in appearance for the patient`s age, as are the aorta and other ascending great vessels. There is no sign of supraclavicular or axillary mass or adenopathy. The visualized superior liver, spleen, pancreas, kidneys, and adrenals are normal in appearance. The osseous structures are normal in appearance for the patient`s age. IMPRESSION: 3.5 centimeter long column of food in the distal thoracic esophagus superior to a moderate-sized hiatal hernia. This could be food impaction at a stricture of the GE junction. The thoracic esophagus superior to the column of food is nondistended. Previous granulomatous disease. Coronary calcification. Please note that all CT scans at this facility use dose modulation, iterative reconstruction, and/or weight-based dosing when appropriate to reduce radiation dose to as low as reasonably achievable. Dictated by Vishnu Fletcher MD @ Sep 04 2020 12:36AM Signed by Dr. Vishnu Fletcher @ Sep 04 2020 12:44AM
[2020-09-04] MEDS ORDERED: Glucagon,Human Recombinant 1 MG Vial IVPUSH ONE (01:08)
--- NOTE | 2020-09-04 02:09 | PCM.SN.2 ---
- Free Text/Narrative Note: food impaction; egd w poss fb extraction; [id number]; rb include bleeding/infection and perforation; pt concurred proceed to OR
[2020-09-04] MEDS ORDERED: Propofol 200 MG/20 ML SDV ONE (02:20)
[2020-09-04] MEDS ORDERED: fentaNYL 100 MCG/2 ML SDV ONE (02:20)
[2020-09-04] MEDS ORDERED: Dexamethasone 4 MG/ML 5 ML MDV ONE (02:20)
[2020-09-04] MEDS ORDERED: Lidocaine 2% 5 ML SDV ONE (02:20)
[2020-09-04] MEDS ORDERED: Ondansetron 4 MG/2 ML SDV ONE (02:20)
[2020-09-04 02:29] LABS: CORONAVIRUS COVID-19 NAA NEGATIVE (NEGATIVE); INFLUENZA A NAA NEGATIVE (NEGATIVE); INFLUENZA B NAA NEGATIVE (NEGATIVE)
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
--- NOTE | 2020-09-04 03:21 | PCM.OPNOTE ---
- General Post-Op/Procedure Note Date of Surgery/Procedure: 09/04/20 Operative Procedure(s): egd w fb xtraction Findings: a v large piece of meat; toturous ge junction asnd hiatal hernia; [id number] Pre Op Diagnosis: food impaction Post-Op Diagnosis: Same Anesthesia Technique: General LMA Primary Surgeon: Matt Wan Pathology: antrum bx; pt had hx of hpylori infection, and s/p 3 drug treatment 2 months ago Complications: None Condition: Good
--- NOTE | 2020-09-04 03:22 | PCM.POSTAN ---
POST ANESTHESIA ASSESSMENT - MENTAL STATUS Mental Status: Alert, Oriented - VITAL SIGNS Vital Signs: Last Vital Signs Temp 37.4 C 09/03/20 22:13 Pulse 83 09/04/20 03:20 Resp 14 09/04/20 03:20 BP 122/67 09/04/20 03:20 Pulse Ox 98 09/04/20 03:20 - RESPIRATORY Respiratory Status: Respiratory Rate WNL, Airway Patent, O2 Saturation Stable - CARDIOVASCULAR CV Status: Pulse Rate WNL, Blood Pressure Stable - GASTROINTESTINAL GI Status: No Symptoms - PAIN Free Text/Narrative:: throat sore with deep breaths - POST OP HYDRATION Hydration Status: Adequate & Stable
[2020-09-04] MEDS ORDERED: Acetaminophen/oxyCODONE 325-5 MG Tab PO PRN (03:26)
[2020-09-04] MEDS ORDERED: Acetaminophen 325 MG Tab PO PRN (04:10)
[2020-09-04] MEDS ORDERED: Pneumococcal 23-Valent Conjugate Vaccine 0.5 ML Syringe IM ONE (05:09)
--- NOTE | 2020-09-04 07:42 | PCM48HPAN ---
Post Anesthesia Note - EVALUATION WITHIN 48HRS OF ANESTHETIC Vital Signs in Normal Range: Yes Patient Participated in Evaluation: Yes Respiratory Function Stable: Yes Airway Patent: Yes Cardiovascular Function Stable: Yes Hydration Status Stable: Yes Pain Control Satisfactory: Yes Nausea and Vomiting Control Satisfactory: Yes Mental Status Recovered: Yes Vital Signs: Last Vital Signs Temp 36.7 C 09/04/20 04:00 Pulse 61 09/04/20 07:00 Resp 17 09/04/20 07:00 BP 119/56 L 09/04/20 07:00 Pulse Ox 92 L 09/04/20 07:00 - COMMENTS/OBSERVATIONS Free Text/Narrative:: Doing well. No problems noted post.
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
--- NOTE | 2020-09-04 08:08 | OR ---
SURGEON: Matt Wan MD DATE OF PROCEDURE: 09/04/2020 PREOPERATIVE DIAGNOSIS: Food impaction. POSTOPERATIVE DIAGNOSIS: Food impaction. PROCEDURE PERFORMED: Esophagogastroduodenoscopy with foreign body biopsy. PRIMARY SURGEON: Matt Wan MD COMPLICATIONS: None. FINDINGS: A piece of meat pretty big and luckily was quite intact. The whole thing pulled out by the use of a basket. DESCRIPTION OF PROCEDURE: The patient was taken to the operating room and placed in the supine position. Upon induction of LMA, a well-lubricated EGD was gently inserted through the scope guide and through the oropharynx and down in the esophagus. I encountered a large amount of saliva and water consisten with complete blocking, and sucked all the water, a piece of meat was observed. Using a basket, the piece of meat was completely caught in the basket and gently pulled through with the EGD scope. The EGD scope was then reinserted to examine the esophagus. Oropharynx and esophagus look fine. In the distal esophagus, the GE junction at 35 was pretty inflamed and torturous, and there was a large hiatal hernia too. Going into the stomach, the stomach looks fine. Again, the GE junction area is very edematous and inflamed. Antrum looks fine. Duodenum totally looks fine. On retroflexed look at the fundus of the stomach, there is no hiatal hernia. Biopsied at the antrum, just one, and sucked all the water and sucked out the air while the scope was pulling out. The patient tolerated the procedure well. There were no intraoperative complication. The patient was awakened, extubated, and transferred to recovery room in hemodynamically stable condition. Dr. Wan was present through the whole procedure. Prior to the procedure, a time-out was called, the patient identified, procedure identified, and procedure then started. As always, thank you for the kind referral. CHARLINE / KUN /[id number] MTDBill
[2020-09-04 08:39] VITALS: BP 120/70; PULSE 69
[2020-09-04] MEDS ORDERED: FLU VACC QS2020(65UP)/MF59C/PF 60 MCG/0.5 ML Syringe IM ONE (09:00)
[2020-09-04] MEDS ORDERED: Pneumococcal Polyvalent-23 Vaccine 0.5 ML SDV IM ONE (09:00)
[2020-09-04] MEDS ORDERED: FLU Vacc QV2020-21(65YR UP)/PF 240 MCG/0.7 ML Syringe IM ONE (10:00)
[2020-09-05] MEDS ORDERED: Pneumococcal 23-Valent Conjugate Vaccine 0.5 ML Syringe IM ONE (08:30)
== END 2020-09-04 09:45 | disposition home or self-care (01) ==
LOC: MW.ED 21:57 → MW.SDS 09-04 01:59 → MW.MS 09-04 02:53 → MW.SDS 09-04 09:45
PROVIDERS: ATTEND Surgery
DX: T18.128A Food in esophagus causing other injury, initial encounter (principal); K44.9 Diaphragmatic hernia without obstruction or gangrene; Z98.890 Other specified postprocedural states; Z88.0 Allergy status to penicillin; Z79.899 Other long term (current) drug therapy; Z01.812 Encounter for preprocedural laboratory examination; Z20.822 Contact with and (suspected) exposure to COVID-19
CPT/HCPCS: 0240U; 36415; 43247; 70490; 71046; 71250; 80048; 84484; 85025; 90694; 90732; 93005; 99285; A9270; G0008; G0009; J1100; J1610; J2405; J2704; J3010; J7030; 00731; 88305; 88312; 93010; 99283

== ENCOUNTER 2021-08-01 19:24 | Emergency (ER) | payer MEDICARE, OTHER ==
[2021-08-01] MEDS ORDERED: Sodium Chloride 0.9% 10 ML Syringe FLUSH PRN (21:40)
[2021-08-01] MEDS ORDERED: Sodium Chloride 0.9% 2.5 ML Syringe FLUSH PRN (21:40)
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
[2021-08-01 22:35] VITALS: BP 128/66; PULSE 62
== END 2021-08-01 22:35 | disposition home or self-care (01) ==
LOC: MW.ED 19:24
DX: T18.128A Food in esophagus causing other injury, initial encounter (principal); Z87.891 Personal history of nicotine dependence; Z88.0 Allergy status to penicillin
CPT/HCPCS: 99283

== ENCOUNTER 2022-12-13 10:43 | Emergency (ER) | payer MEDICARE, OTHER ==
[2022-12-13 11:46] VITALS: BP 134/65; PULSE 61
[2022-12-13] MEDS ORDERED: Lidocaine 1% 5 ML VIAL INJECT ONE (12:13)
[2022-12-13] MEDS ORDERED: Diphtheria,Pertussis(Acell),Tetanus Vaccine 0.5 ML Syringe IM ONE (12:27)
== END 2022-12-13 12:47 | disposition home or self-care (01) ==
LOC: MW.ED 10:43
DX: S50.852A Superficial foreign body of left forearm, initial encounter (principal); Z23 Encounter for immunization; Z88.0 Allergy status to penicillin; W45.8XXA Other foreign body or object entering through skin, initial encounter
CPT/HCPCS: 90471; 90715; 99283; J3490

== ENCOUNTER 2023-08-08 07:35 | Day surgery (SDC) | payer MEDICARE, OTHER ==
[~2023-08-08 07:35] MED LIST changes: -Lidocaine 2% 5 ML SDV ONE; -Midazolam 1 MG/ML 2 ML SDV ONE; -Propofol 200 MG/20 ML SDV ONE; -Sodium Chloride 0.9% 10 ML SDV IV PRN; +Sodium Chloride 0.9% 20 ML SDV IV PRN; -ePHEDrine 50 MG/ML SDV ONE; -fentaNYL 100 MCG/2 ML SDV ONE
[2023-08-08] MEDS ORDERED: Propofol 200 MG/20 ML SDV ONE ×2 (08:18→11:10)
[2023-08-08 11:51] VITALS: BP 101/65; PULSE 52
== END 2023-08-08 12:18 | disposition home or self-care (01) ==
LOC: MW.SDS 07:35
PROVIDERS: ATTEND Surgery
DX: K29.50 Unspecified chronic gastritis without bleeding (principal); K20.90 Esophagitis, unspecified without bleeding; K21.9 Gastro-esophageal reflux disease without esophagitis; R13.10 Dysphagia, unspecified; K44.9 Diaphragmatic hernia without obstruction or gangrene; Z72.0 Tobacco use; Z98.890 Other specified postprocedural states; Z88.0 Allergy status to penicillin; Z88.8 Allergy status to other drugs, medicaments and biological substances
CPT/HCPCS: 43239; J2704; J7120

== ENCOUNTER 2024-01-27 19:51 | Day surgery (SDC) | payer MEDICARE, OTHER ==
[2024-01-27 20:39] LABS: BASOPHILS ABSOLUTE AUTO 0.07 K/uL (0.00-0.20); EOSINOPHILS ABSOLUTE AUTO 0.21 K/uL (0.00-0.45); EOSINOPHILS PERCENT AUTO 3.1 % (0.0-6.0); HEMATOCRIT 39.7 % (42.0-52.0); HEMOGLOBIN 13.5 g/dL (14.0-18.0); IMMATURE GRAN ABSOLUTE AUTO 0.02 K/uL (0.00-0.05); IMMATURE GRAN PERCENT AUTO 0.3 % (0.0-0.4); LYMPHOCYTES ABSOLUTE AUTO 1.95 K/uL (1.00-4.80); LYMPHOCYTES PERCENT AUTO 28.6 % (24.0-44.0); MEAN CORPUSCULAR HEMOGLOBIN 29.2 pg (28.0-32.0); MEAN CORPUSCULAR VOLUME 85.7 fL (83.0-99.0); MEAN PLATELET VOLUME 9.2 fL (9.4-12.4); MONOCYTES ABSOLUTE AUTO 0.67 K/uL (0.00-0.80); MONOCYTES PERCENT AUTO 9.8 % (0.0-8.0); NEUTROPHILS ABSOLUTE AUTO 3.89 K/uL (1.80-7.70); NEUTROPHILS PERCENT AUTO 57.2 % (41.0-71.0); PLATELET COUNT,PLT 227 K/uL (150-400); RED BLOOD CELL COUNT 4.63 M/uL (4.52-5.90); WHITE BLOOD CELL COUNT,WBC 6.81 K/uL (3.9-11.3)
[2024-01-27] MEDS: Sodium Chloride 0.9% 1,000 ML IV ONE (20:39)
[2024-01-27] MEDS: Sodium Chloride 0.9% 2.5 ML Syringe FLUSH PRN (20:40)
[2024-01-27] MEDS: Ondansetron 4 MG/2 ML SDV IVPUSH ONE (20:40)
[2024-01-27] MEDS: Famotidine 20 MG/2 ML SDV IVPUSH ONE (20:40)
[2024-01-27] MEDS: Sodium Chloride 0.9% 10 ML Syringe FLUSH PRN (20:40)
[2024-01-27] MEDS: Glucagon,Human Recombinant 1 MG Vial IVPUSH ONE (20:41)
[2024-01-27] MEDS: Water For Injection, Sterile 20 ML ONE (20:48)
[2024-01-27] MEDS: Water For Injection, Sterile 20 ML SDV INJECT STA (20:50)
[2024-01-27 21:01] LABS: INR 1.04 (0.86-1.11); PTT,PARTIAL THROMBOPLSTIN TIME 29.1 SEC (23.9-30.7)
[2024-01-27 21:05] LABS: A/G RATIO 1.1 (0.9-1.6); ALBUMIN 3.9 g/dL (3.4-5.0); BILIRUBIN TOTAL 0.4 mg/dL (0.2-1.0); CALCIUM 8.1 mg/dL (8.5-10.1); CARBON DIOXIDE,CO2 26.4 mmol/L (21.0-32.0); CREATININE 1.1 mg/dL (0.8-1.3); EST CRCL DRUG DOSING (CG) 58.73 mL/min; POTASSIUM,K 4.2 mmol/L (3.5-5.1); PROTEIN TOTAL,TP 7.3 g/dL (6.4-8.2)
[2024-01-27] MEDS ORDERED: Propofol 200 MG/20 ML SDV ONE (22:40)
[2024-01-27] MEDS ORDERED: Succinylcholine/Sod PF 100 MG/5 ML SYRINGE IV ONE (22:40)
[2024-01-27] MEDS ORDERED: Water For Injection, Sterile 20 ML ONE (22:42)
[2024-01-27] MEDS ORDERED: dexmedeTOMIDine HCl 200 MCG/2 ML SDV ONE (22:43)
[2024-01-27] MEDS ORDERED: fentaNYL 100 MCG/2 ML SDV ONE (23:17)
[2024-01-28] MEDS: Lactated Ringers 1,000 ML IV SCH (00:14)
[2024-01-28] MEDS ORDERED: Lactated Ringers 1,000 ML IV SCH (00:15)
[2024-01-28 01:42] VITALS: BP 143/75; PULSE 60
== END 2024-01-28 01:55 | disposition home or self-care (01) ==
LOC: MW.ED 19:51 → MW.SDS 22:48 → MW.MS 23:17 → MW.SDS 01-28 01:55
PROVIDERS: ATTEND Surgery
DX: T18.128A Food in esophagus causing other injury, initial encounter (principal); K22.2 Esophageal obstruction; K29.50 Unspecified chronic gastritis without bleeding; K21.9 Gastro-esophageal reflux disease without esophagitis; K44.9 Diaphragmatic hernia without obstruction or gangrene; W44.F3XA Food entering into or through a natural orifice, initial encounter; Z88.0 Allergy status to penicillin
CPT/HCPCS: 36415; 43239; 43247; 71045; 80053; 84484; 85025; 85610; 85730; 88305; 96361; 96374; 96375; 99285; J0330; J1611; J2405; J2704; J3010; J3490; J7030; J7120; 00731; 99100; 99214; 99283

== ENCOUNTER 2025-04-24 20:42 | Emergency (ER) | payer OTHER ==
[2025-04-24 22:17] LABS: BASOPHILS ABSOLUTE AUTO 0.06 K/uL (0.00-0.20); BASOPHILS PERCENT AUTO 0.7 % (0.0-1.0); EOSINOPHILS ABSOLUTE AUTO 0.24 K/uL (0.00-0.45); EOSINOPHILS PERCENT AUTO 2.9 % (0.0-6.0); IMMATURE GRAN ABSOLUTE AUTO 0.02 K/uL (0.00-0.05); IMMATURE GRAN PERCENT AUTO 0.2 % (0.0-0.4); LYMPHOCYTES ABSOLUTE AUTO 1.86 K/uL (1.00-4.80); LYMPHOCYTES PERCENT AUTO 22.7 % (24.0-44.0); MEAN PLATELET VOLUME 9.7 fL (9.4-12.4); MONOCYTES ABSOLUTE AUTO 0.84 K/uL (0.00-0.80); MONOCYTES PERCENT AUTO 10.2 % (0.0-8.0); NEUTROPHILS ABSOLUTE AUTO 5.19 K/uL (1.80-7.70); NEUTROPHILS PERCENT AUTO 63.3 % (41.0-71.0); NRBC ABSOLUTE 0.00 K/uL (0.00-0.02); NRBC PERCENT 0.0 /100WBC (0.0-0.2); PLATELET COUNT,PLT 219 K/uL (150-400); RED BLOOD CELL COUNT 4.45 M/uL (4.52-5.90); WHITE BLOOD CELL COUNT,WBC 8.21 K/uL (3.9-11.3)
[2025-04-24 22:45] LABS: APPEARANCE,URINE SLT CLOUDY; GLUCOSE,URINE NEGATIVE (NEGATIVE); OCCULT BLOOD,URINE SMALL (NEGATIVE)
[2025-04-24 22:47] LABS: A/G RATIO 0.9 (0.9-1.6); ALANINE AMINOTRANSFERASE,ALT 33.0 IU/L (14-63); ASPARTATE AMNIOTRANSFERASE,AST 22.0 IU/L (15-37); BILIRUBIN TOTAL 0.3 mg/dL (0.2-1.0); BLOOD UREA NITROGEN,BUN 24.0 mg/dL (7.0-18.0); CARBON DIOXIDE,CO2 20.4 mmol/L (21.0-32.0); CHLORIDE,CL 107.0 mmol/L (98-107); CREATININE 1.2 mg/dL (0.8-1.3); EST CRCL DRUG DOSING (CG) 53.04 mL/min; GLUCOSE RANDOM 119.0 mg/dL (74-106); POTASSIUM,K 4.0 mmol/L (3.5-5.1); PRO B-TYPE NATRIUR PEPT,BNPPRO 340.0 pg/mL (0-125); PROTEIN TOTAL,TP 7.8 g/dL (6.4-8.2); SODIUM,NA 142.0 mmol/L (136-148)
[2025-04-24 22:48] LABS: ESTIMATED GFR 64.0 mL/min (>60)
[2025-04-24 22:51] LABS: EPITHELIAL CELLS,URINE FEW (NONE-FEW)
[2025-04-24] MEDS: cefTRIAXone 1 GM in Water For Injection, Sterile 10 ML IVPUSH ONE (23:35)
[2025-04-24] MEDS: Iopamidol 755 MG/ML 500 ML Multipack Bottle IVPUSH STA (23:48)
[2025-04-25 00:57] VITALS: BP 143/78; PULSE 69
== END 2025-04-25 00:50 | disposition home or self-care (01) ==
LOC: MW.ED 20:42
DX: N12 Tubulo-interstitial nephritis, not specified as acute or chronic (principal); I10 Essential (primary) hypertension; Z88.0 Allergy status to penicillin; Z88.8 Allergy status to other drugs, medicaments and biological substances; Z79.899 Other long term (current) drug therapy
CPT/HCPCS: 36415; 71045; 71275; 74177; 76705; 80053; 81001; 83690; 83735; 83880; 84484; 85025; 85379; 87086; 87088; 87186; 93005; 96374; 99284; J0696; Q9967